=== PATIENT | male | born 1970 | race Caucasian/White ===

== ENCOUNTER → 2020-01-05 | Outpatient (CLI) | payer OTHER ==
[~2020-01-05] VITALS: Ht 185.4 cm; Wt 70.8 kg
--- NOTE | 2020-01-05 11:30 | Consultation ---
DATE OF CONSULTATION: 01/05/2020 GASTROENTEROLOGY CONSULTATION CONSULTING PHYSICIAN: Manolo Tamez MD. CHIEF COMPLAINT: Weight loss, screening colonoscopy evaluation. PAST MEDICAL HISTORY: Alcohol abuse. PAST SURGICAL HISTORY: Tonsillectomy and pilonidal cyst. MEDICATIONS: Please see medication reconciliation list. FAMILY HISTORY: Father had AIDS. SOCIAL HISTORY: The patient was a heavy drinker, but quit about 8 months ago. Tobacco, he used to smoke, quit about 15 years ago. No IV drug abuse. ALLERGIES: No known drug allergies. REVIEW OF SYSTEMS: Positive for constipation/diarrhea and significant weight loss since he stopped drinking. PHYSICAL EXAMINATION: VITAL SIGNS: Temperature 98.4, blood pressure 106/79, pulse 76, respirations 18. HEENT: Normocephalic and atraumatic. Sclerae are anicteric. NECK: Supple. No evidence of obvious lymphadenopathy. CARDIOVASCULAR: Regular regular and rhythm. Plus S1-S2. LUNGS: Clear to auscultation bilaterally. ABDOMEN: Positive bowel sounds. Soft and nontender. No rebound. No guarding. No peritoneal signs. EXTREMITIES: No cyanosis. No clubbing. No edema. ASSESSMENT AND PLAN: The patient is a 49-year-old male with need for screening colonoscopy, but given his weight loss we also recommend endoscopy. The patient was given instruction for endoscopy and colonoscopy. Risks and benefits of procedure was explained to him. We will schedule as soon as we have the authorization. Manolo Tamez M.D. DR: GERONIMO JOB#: [id number] CC:
[2020-01-05 14:49] VITALS: BP 106/79
== END | disposition home or self-care (01) ==
LOC: PAN 08:35
DX: R63.4 Abnormal weight loss (principal); Z87.891 Personal history of nicotine dependence; K59.00 Constipation, unspecified; R19.7 Diarrhea, unspecified